=== PATIENT | male | born 1995 | race Caucasian/White ===

== ENCOUNTER 2017-03-02 14:21 | Emergency (ER) | payer OTHER ==
[~2017-03-02] VITALS: Ht 177.8 cm; Wt 78.0 kg
[2017-03-02] MEDS ORDERED: IBUPROFEN 600 MG TAB PO STA (14:34)
[2017-03-02] MEDS ORDERED: IBUPROFEN 400 MG TAB PO ONE (15:00)
--- NOTE | 2017-03-02 15:01 | Diagnostic Imaging Report ---
Two view chest x-ray INDICATION: Cough, congestion COMPARISON: None. FINDINGS: The cardiomediastinal silhouette is normal. There is no evidence of hilar lymphadenopathy. The pulmonary vascular markings are normal. There is no evidence of focal consolidation or pleural effusion. Evaluation of the osseous structures demonstrates no focal abnormality. IMPRESSION: No active cardiopulmonary disease. Signed by: Dr. Elo Rey MD on 03/02/2017 2:58 PM
[2017-03-02 15:04] LABS: STREPTOCOCCUS GRP A ANTIGEN NEGATIVE (NEGATIVE)
[2017-03-02 15:12] LABS: INFLUENZAE A&B ANTIGEN (RAPID) POSITIVE FLU A (NEGATIVE)
== END 2017-03-02 16:00 | disposition home or self-care (01) ==
LOC: ER 14:21
DX: R50.9 Fever, unspecified (principal); R05 Cough; J09.X2 Influenza due to identified novel influenza A virus with other respiratory manifestations
CPT/HCPCS: 71020; 83518; 87070; 87400; 99283

== ENCOUNTER 2018-05-18 21:31 | Emergency (ER) | payer OTHER ==
[~2018-05-18] VITALS: Ht 177.8 cm; Wt 78.0 kg
--- OUTSIDE RECORDS SUMMARY | 2018-05-18 21:33 | XMS REPORT ---
[facility] Address Unknown Phone Unavailable Care Team Providers Care Host/Hostess Name Role Phone BLUM, Valery ADRIANNA Unavailable Unavailable Problems This patient has no known problems. Allergies, Adverse Reactions, Alerts This patient has no known allergies or adverse reactions. Medications This patient has no known medications. Results Test Description Test Time Test Comments Text Results Atomic Results Result Comments CHEST 2 VIEWS [place] [address] Patient Name: JF INGRAM MR #: [id number] : 1995 Age/Sex: 21/M Req #: [id number] Adm Physician: Ordered by: VISHAL AZEVEDO SPECIAL EDUCATION ADMINISTRATOR Report #: [id number] Location: ER Room/Bed: Procedure: [id number] DX/CHEST 2 VIEWS Exam Date: 03/02/17 Exam Time: 1450 REPORT STATUS: Signed Two view chest x-ray INDICATION: Cough, congestion COMPARISON: None. FINDINGS: The cardiomediastinal silhouette is normal. There is no evidence of hilar lymphadenopathy. The pulmonary vascular markings are normal. There is no evidence of focal consolidation or pleural effusion. Evaluation of the osseous structures demonstrates no focal abnormality. IMPRESSION: No active cardiopulmonary disease. Sig rupert by: Dr. Merary Rey MD on 03/02/2017 2:58 PM Dictated By: MERARY REY MD [id number] Transcribed By: BREE on 03/02/17 145 COPY TO: VISHAL AZEVEDO NP
--- OUTSIDE RECORDS SUMMARY | 2018-05-18 21:33 | XMS REPORT | Continuity of Care Document ---
Author Author [facility] Address Unknown Phone Unavailable Problems Problem Status Onset Date Classification Date Reported Comments Source Sebaceous cyst Active Diagnosis 05/15/2016 [facility] Local infection of the skin and subcutaneous tissue, unspecified Active Diagnosis 05/15/2016 [facility] Medications Medication Details Route Status Patient Instructions Ordering Provider Order Date Source Bactrim DS 1 tablet Orally Active 800-160 MG Orally Twice a day Brando 05/11/2016 [facility] Bactrim DS 1 tablet Orally Active 800-160 MG Orally Twice a day Brando [facility] Allergies, Adverse Reactions, Alerts Substance Category Reaction Severity Reaction type Status Date Reported Comments Source N.K.D.A. Adverse Reaction Info Not Available Adverse Reaction Active 05/11/2016 [facility] Immunizations Immunization Date Given Site Status Last Updated Comments Source Results Order Name Results Value Reference Range Date Interpretation Comments Source Vital Signs Vital Sign Value Date Comments Source Weight 163 05/11/2016 [facility] Height 70 05/11/2016 [facility] Heart Rate 76 05/11/2016 [facility] Diastolic (mm Hg) 72 05/11/2016 [facility] Systolic (mm Hg) 118 05/11/2016 [facility] Weight 164 05/04/2016 [facility] Height 70 05/04/2016 [facility] Heart Rate 73 05/04/2016 [facility] Diastolic (mm Hg) 62 05/04/2016 [facility] Systolic (mm Hg) 94 05/04/2016 [facility] Encounters Location Location Details Encounter Type Encounter Number Reason For Visit Attending Provider ADM Date DC Date Status Source [facility] 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
--- OUTSIDE RECORDS SUMMARY | 2018-05-18 21:33 | XMS REPORT ---
Author Author Lauren Zhang Organization [employer] Address Unknown Phone Unavailable Care Team Providers Care Sample Card Maker Name Role Phone Lauren Zhang Unavailable Allergies, Adverse Reactions, Alerts Substance Reaction Event Type N.K.D.A. 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 negative May 04, 2016 Last Colonoscopy: . never May 04, 2016 Ethnicity . Status , Is yoruba your primary language? Yes May 04, 2016 Where or with whom do you live ? . and kids May 04, 2016 Flu Vaccine: . No, Advised May 04, 2016 Tobacco Use: . Are you a: never smoker May 04, 2016 Do you have pets? . Status: Yes, Type: dog(s) May 04, 2016 Marital Status: . May 04, 2016 Caffeine intake? . Status: Yes, What type: Coffee, Soft Drinks May 04, 2016 Do you exercise? . Answer: Yes May 04, 2016 Do you drink alcohol? . Status: Yes, Type: Beer, How often? Rarely May 04, 2016 Vital Signs Date/Time: May 04, 2016 Weight 164 lbs Height 70 in Cardiac Monitoring Heart Rate 73 /min Blood Pressure Diastolic 62 mm Hg Blood Pressure Systolic 94 mm Hg Summary Purpose [employer] Submission
--- OUTSIDE RECORDS SUMMARY | 2018-05-18 21:33 | XMS REPORT ---
Author Author Debbie Michaels [facility] [employer] Address Unknown Phone Unavailable Care Team Providers Care Bill Peddler Name Role Phone Debbie Michaels CP Unavailable Allergies, Adverse Reactions, Alerts Substance Reaction Event Type N.K.D.A. 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 [facility] May 04, 2016 1 week follow up on staph inf [facility] May 11, 2016 Problems Problem Type Condition ICD-9 Code Onset Dates Condition Status Assessment Local infection of the skin and subcutaneous tissue, unspecified L08.9 Active Assessment Sebaceous cyst L72.3 Active Medications Medication Code System Code Instructions Start Date End Date Status Dosage Bactrim DS MEDISPAN [address]-86 800-160 MG Orally Twice a day May 11, 2016 May 16, 2016 Active 1 tablet Bactrim DS MEDISPAN [address]-23 800-160 MG Orally Twice a day Active 1 tablet Social History Social History Element Qualifiers Date Reported Depression Screening: . negative May 11, 2016 Last Colonoscopy: . never May 11, 2016 Ethnicity . Status , Is vietnamese your primary language? Yes May 11, 2016 Where or with whom do you live ? . and kids May 11, 2016 Flu Vaccine: . No, Advised May 11, 2016 Tobacco Use: . Are you a: never smoker May 11, 2016 Do you have pets? . Status: Yes, Type: dog(s) May 11, 2016 Marital Status: . May 11, 2016 Caffeine intake? . Status: Yes, What type: Coffee, Soft Drinks May 11, 2016 Do you exercise? . Answer: Yes May 11, 2016 Do you drink alcohol? . Status: Yes, Type: Beer, How often? Rarely May 11, 2016 Family history Qualifier Description Comment Date Reported Maternal Grandmother Comment not available May 11, 2016 Paternal Grandmother Comment not available May 11, 2016 Siblings Comment not available May 11, 2016 Maternal Grandfather Comment not available May 11, 2016 Children Comment not available May 11, 2016 Father alive Comment not available May 11, 2016 Paternal Grandfather Comment not available May 11, 2016 Mother alive Comment not available May 11, 2016 Other: Comment not available May 11, 2016 Vital Signs Date/Time: May 11, 2016 Weight 163 lbs Height 70 in Cardiac Monitoring Heart Rate 76 /min Blood Pressure Diastolic 72 mm Hg Blood Pressure Systolic 118 mm Hg Summary Purpose [employer] Submission
[2018-05-18] MEDS ORDERED: SODIUM CHLORIDE 0.9% 1000ML 1,000 ML IV STA (22:04)
[2018-05-18] MEDS ORDERED: ONDANSETRON HCL INJ 2MG/ML 2ML 2 MG/ML VIAL IV STA (22:04)
[2018-05-18] MEDS ORDERED: ONDANSETRON HCL INJ 2MG/ML 2ML 2 MG/ML VIAL ONE (22:12)
[2018-05-18 23:21] LABS: BASOPHILS % 0.3 % (0.0-1.0); EOSINOPHILS # (AUTO) 0.1 (0.0-0.4); EOSINOPHILS % 1.7 % (0.0-6.0); HEMATOCRIT 42.6 % (38.2-49.6); HEMOGLOBIN 14.9 g/dL (14.0-18.0); LYMPHOCYTES % 12.8 % (18.0-39.1); MEAN CORPUSCULAR HEMOGLOBIN 29.3 pg (28-32); MEAN CORPUSCULAR VOLUME 83.9 fL (81-99); MONOCYTES # (AUTO) 0.6 (0.2-0.8); MONOCYTES % 8.4 % (4.4-11.3); NEUTROPHILS # (AUTO) 5.8 (2.1-6.9); NEUTROPHILS % 76.5 % (38.7-80.0); PLATELET COUNT 185 x10e3/uL (140-360); RED BLOOD COUNT 5.08 x10e6/uL (4.3-5.7); RED CELL DISTRIBUTION WIDTH 11.8 % (11.7-14.4)
[2018-05-18 23:43] LABS: ALANINE AMINOTRANSFERASE 24 IU/L (0-55); ALBUMIN 3.4 g/dL (3.5-5.0); ALKALINE PHOSPHATASE 70 IU/L (40-150); ANION GAP 12.2 mmol/L (8-16); BLOOD UREA NITROGEN 13 mg/dL (7-26); BUN/CREATININE RATIO 13 (6-25); CALCIUM 8.1 mg/dL (8.4-10.2); CARBON DIOXIDE 26 mmol/L (22-29); CHLORIDE 103 mmol/L (98-107); EST GLOMERULAR FILTRATION RATE > 60 ML/MIN (60-); GLUCOSE 101 mg/dL (74-118); POTASSIUM 3.2 mmol/L (3.5-5.1); SODIUM 138 mmol/L (136-145)
[2018-05-19] MEDS ORDERED: ZOFRAN4 MG SL (00:05)
[2018-05-19 00:40] VITALS: BP 109/67
== END 2018-05-19 00:43 | disposition home or self-care (01) ==
LOC: ER 21:31
DX: R11.2 Nausea with vomiting, unspecified (principal); R19.7 Diarrhea, unspecified; K52.9 Noninfective gastroenteritis and colitis, unspecified
CPT/HCPCS: 36415; 80053; 85025; 99283; J2405; J7030

== ENCOUNTER → 2022-07-31 | Outpatient (CLI) | payer BC ==
[~2022-07-31] MED LIST: DIATRIZOATE MEGL/DIATRIZOA SOD 30 ML BTL PO ONE; IOPAMIDOL 370 MG/ML 100 ML INFUS..BTL INJ ONE; ZOFRAN4 MG SL
== END ==
LOC: CT 16:05
PROVIDERS: ATTEND Family Medicine
DX: R10.32 Left lower quadrant pain (principal)
CPT/HCPCS: 74177; Q9963; Q9967